=== PATIENT | male | born 2000 | race Caucasian/White ===

== ENCOUNTER 2022-05-17 05:09 | Emergency (ER) | payer MEDICAID ==
[~2022-05-17] VITALS: Ht 182.9 cm; Wt 168.7 kg
[2022-05-17 05:15] VITALS: BP 142/90
[2022-05-17 05:30] VITALS: BP 142/90
--- NOTE | 2022-05-17 06:04 | NUR ---
Dr. Hughes examining patient.
[2022-05-17] MEDS ORDERED: ALBUTEROL 0.083% 2.5 MG/3 ML NEBU INH ONE (06:10)
--- NOTE | 2022-05-17 06:26 | NUR ---
RT WITH PT
[2022-05-17] MEDS ORDERED: INHA1SPA24 MC (06:37)
[2022-05-17] MEDS ORDERED: ROB PO (06:37)
[2022-05-17] MEDS ORDERED: SUD30 PO (06:37)
[2022-05-17] MEDS ORDERED: ALBU0.0912 INH (06:37)
--- NOTE | 2022-05-17 06:48 | NUR ---
Patient discharged with v/s stable. Written and verbal after care instructions given and explained. Patient verbalized understanding. Ambulatory with steady gait. All questions addressed prior to discharge. Advised to follow up with PMD.
== END 2022-05-17 06:48 | disposition home or self-care (01) ==
LOC: MED 05:09
DX: J20.8 Acute bronchitis due to other specified organisms (principal); Z20.822 Contact with and (suspected) exposure to COVID-19
CPT/HCPCS: 87426; 87804; 99283; J7613